=== PATIENT | female | born 1985 | race Caucasian/White ===

== ENCOUNTER 2018-11-15 03:10 | Inpatient (IN) | payer OTHER ==
[2018-11-15] MEDS ORDERED: LACTATED RINGER'S 1,000 ML IV (03:50)
[2018-11-15] MEDS ORDERED: OXYTOCIN 30 UNITS/LR 500 ML IV ×2 (04:00→11:30)
[2018-11-15] MEDS ORDERED: LIDOCAINE 1% (MPF) 30 ML INJ INJ (04:00)
[2018-11-15] MEDS ORDERED: MISOPROSTOL 200 MCG TAB PR ×2 (04:00→11:30)
[2018-11-15] MEDS ORDERED: BUTORPHANOL 2 MG INJ IV (04:00)
[2018-11-15] MEDS ORDERED: AMPICILLIN 2 GM/NS (PMX) 100 ML IV (04:00)
[2018-11-15] MEDS ORDERED: CARBOPROST 250 MCG INJ IM ×2 (04:00→11:30)
[2018-11-15 04:01] LABS: ADD MAN DIFF? NO
[2018-11-15] MEDS: LACTATED RINGER'S 1,000 ML IV ×2 (04:01→07:32)
[2018-11-15 04:09] LABS: BASOPHIL # 0.1 10^3/ul (0.0-0.1); BASOPHILS % 0.4 % (0.0-2.0); EOSINOPHILS # 0.1 10^3/ul (0.0-0.5); EOSINOPHILS % 0.5 % (0.0-7.0); HEMATOCRIT 38.6 % (37.0-47.0); LYMPHOCYTES # 1.8 10^3/ul (0.8-2.9); LYMPHOCYTES % 16.2 % (15.0-51.0); MEAN CORPUSCULAR HEMOGLOBIN 31.6 pg (29.0-33.0); MEAN CORPUSCULAR HGB CONC 33.7 g/dl (32.0-37.0); MEAN CORPUSCULAR VOLUME 93.7 fl (82.0-101.0); MEAN PLATELET VOLUME 11.3 fl (7.4-10.4); MONOCYTE # 0.8 10^3/ul (0.3-0.9); MONOCYTES % 6.8 % (0.0-11.0); NEUTROPHIL # 8.4 10^3/ul (1.6-7.5); NEUTROPHILS % 75.7 % (39.0-77.0); PLATELET COUNT 294 10^3/UL (140-415); RED BLOOD COUNT 4.12 10^6/ul (4.20-5.40); RED CELL DISTRIBUTION WIDTH 13.2 % (11.5-14.5)
[2018-11-15 04:09] LABS: WHITE BLOOD COUNT 11.2 10^3/ul (4.8-10.8)
[2018-11-15 04:32] LABS: INR 0.98; PARTIAL THROMBOPLASTIN TIME 31.3 Sec (23.0-35.0); PROTIME 13.1 Sec (11.9-14.9)
[2018-11-15 04:55] LABS: HEPATITIS B SURFACE ANTIGEN NEGATIVE (NEGATIVE)
[2018-11-15] MEDS ORDERED: AMPICILLIN 1 GM/NS (PMX) 50 ML IV (08:00)
[2018-11-15] MEDS: METHYLERGONOVINE 0.2 MG INJ IM (10:02)
[2018-11-15] MEDS: OXYTOCIN 30 UNITS/LR 500 ML IV ×3 (10:04→15:09)
[2018-11-15] MEDS: IBUPROFEN 600 MG TAB PO ×4 (10:19→23:37)
[2018-11-15] MEDS ORDERED: DIPHENHYDRAMINE 25 MG CAP PO (11:30)
[2018-11-15] MEDS ORDERED: HYDROCODONE/APAP (5/325) TAB PO (11:30)
[2018-11-15] MEDS ORDERED: ONDANSETRON 4 MG INJ IV (11:30)
[2018-11-15] MEDS ORDERED: ZOLPIDEM 5 MG TAB PO (11:30)
[2018-11-15] MEDS: SENNA/DOCUSATE NA (8.6MG/50MG) TAB PO ×2 (11:30→20:51)
[2018-11-15] MEDS: FERROUS SULFATE (EC) 325 MG TAB PO (11:30)
[2018-11-15] MEDS ORDERED: ACETAMINOPHEN 325 MG TAB PO (11:30)
[2018-11-15] MEDS ORDERED: NACL 0.9% 3 ML SYG IV (11:30)
[2018-11-15] MEDS: LANOLIN HPA 1 PKT TOP (15:07)
[2018-11-15] MEDS: WITCH HAZEL/GLYCERIN PAD PR (15:07)
[2018-11-15 15:57] LABS: RAPID PLASMA REAGIN NONREACTIVE (NR)
[2018-11-16] MEDS: IBUPROFEN 600 MG TAB PO ×4 (05:30→23:51)
[2018-11-16] MEDS ORDERED: PETROLATUM 5 GM OINT TOP (10:42)
[2018-11-16] MEDS: SENNA/DOCUSATE NA (8.6MG/50MG) TAB PO ×2 (11:44→20:50)
[2018-11-16] MEDS: FERROUS SULFATE (EC) 325 MG TAB PO (11:44)
[2018-11-16 14:55] LABS: ADD MAN DIFF? NO
[2018-11-16 15:05] LABS: BASOPHILS % 0.3 % (0.0-2.0); EOSINOPHILS # 0.1 10^3/ul (0.0-0.5); EOSINOPHILS % 0.9 % (0.0-7.0); HEMOGLOBIN 12.3 g/dl (12.0-16.0); LYMPHOCYTES # 1.8 10^3/ul (0.8-2.9); LYMPHOCYTES % 17.5 % (15.0-51.0); MEAN CORPUSCULAR HEMOGLOBIN 30.9 pg (29.0-33.0); MEAN CORPUSCULAR HGB CONC 33.2 g/dl (32.0-37.0); MEAN PLATELET VOLUME 11.4 fl (7.4-10.4); MONOCYTE # 0.4 10^3/ul (0.3-0.9); MONOCYTES % 3.7 % (0.0-11.0); NEUTROPHIL # 7.8 10^3/ul (1.6-7.5); NEUTROPHILS % 77.3 % (39.0-77.0); PLATELET COUNT 285 10^3/UL (140-415); RED BLOOD COUNT 3.98 10^6/ul (4.20-5.40); RED CELL DISTRIBUTION WIDTH 13.6 % (11.5-14.5)
[2018-11-16 15:05] LABS: WHITE BLOOD COUNT 10.2 10^3/ul (4.8-10.8)
[2018-11-17] MEDS: IBUPROFEN 600 MG TAB PO ×2 (05:33→13:30)
[2018-11-17] MEDS: FERROUS SULFATE (EC) 325 MG TAB PO (10:30)
[2018-11-17] MEDS: SENNA/DOCUSATE NA (8.6MG/50MG) TAB PO (10:31)
== END 2018-11-17 16:22 | disposition home or self-care (01) | DRG 807 ==
LOC: OBT 03:10 → L-D 03:10 → OBT 03:24 → L-D 03:24 → PP1 11:54
PROVIDERS: Specialist
PROC: 10E0XZZ Delivery of Products of Conception, External Approach (ICD-10-PCS; principal; 2018-11-15)
PROC: 0KQM0ZZ Repair Perineum Muscle, Open Approach (ICD-10-PCS; 2018-11-15)
DX: O24.013 Pre-existing type 1 diabetes mellitus, in pregnancy, third trimester (principal); Z37.0 Single live birth; E10.9 Type 1 diabetes mellitus without complications; Z3A.39 39 weeks gestation of pregnancy; O70.1 Second degree perineal laceration during delivery; O69.81X0 Labor and delivery complicated by cord around neck, without compression, not applicable or unspecified; Z3A.01 Less than 8 weeks gestation of pregnancy
CPT/HCPCS: 62322; 76815; 82962; 85025; 85610; 85730; 86592; 86850; 86900; 86901; 87340